=== PATIENT | female | born 1975 | race Two or more races ===

== ENCOUNTER 2022-03-26 22:36 | Emergency (ER) | payer OTHER ==
[2022-03-27] MEDS ORDERED: NEOMYCIN/POLYMYX/DEXAMETH OPHTH DROPS 5 ML EACHEYE STA (01:11)
[2022-03-27] MEDS ORDERED: DEXAMETHASONE 10 MG/ML VIAL PO STA (01:12)
[2022-03-27] MEDS ORDERED: CHERRY SYRUP 10 ML UDC PO ONE (01:12)
[2022-03-27 01:40] VITALS: BP 130/70
[2022-03-27 01:43] LABS: RAPID STREP SCREEN Negative (Negative)
--- NOTE | 2022-03-27 02:11 | ED Physician Documentation ---
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 She indicates that she had an upper respiratory tract infection while on the boat and she was unable to get tested for COVID as the daily line for services was extensive. She felt that she had improvement of the initial illness and developed a cough and then she subsequently developed a second illness. Again this seemed to improve after a period of time and she had a persistent cough. Three days ago she has developed some itching and drainage from both of her eyes and this is reason for her visit this evening. She has yellow drainage from the eyes and swelling. She had sinus pressure that is now improved. Review of Systems Constitutional: reports: Chills, Myalgias, Fatigue, Sweats Eyes: reports: Discharge, Irritation. denies: Decreased vision Ears: denies: Loss of hearing, Ear pain Nose: reports: Rhinorrhea / runny nose, Congestion, Sinus pressure / pain Throat: reports: Sore throat. denies: Dental pain / toothache Cardiac: denies: Chest pain / pressure Respiratory: reports: Cough. denies: Dyspnea GI: denies: Vomiting, Diarrhea : denies: Dysuria, Frequency Skin: denies: Rash Musculoskeletal: denies: Neck pain, Extremity pain Neurologic: denies: Generalized weakness, Focal weakness, Numbness PD PAST MEDICAL HISTORY - Present Medications Home Medications: Ambulatory Orders Medication Instructions Recorded Confirmed Benzonatate [Tessalon] 100 - 200 mg PO TID PRN #30 cap 03/27/22 Neomycin/Poly/Dex Ophth Drops 1 drops EACHEYE QID #5 ml 03/27/22 [Maxitrol Ophth Drops] - Allergies Allergies/Adverse Reactions: Allergies Allergy/AdvReac Type Severity Reaction Status Date / Time No Known Drug Allergies Allergy Verified 03/26/22 22:48 PD ED PE NORMAL - Vitals Vital signs reviewed: Yes (normal ) - General General: Alert and oriented X 3, No acute distress, Well developed/nourished - HEENT HEENT: Atraumatic, PERRL, EOMI, Ears normal, Moist mucous membranes, Pharynx benign, Dentition benign, Other (There is erythema and swelling to the conjuntiva with yellow drainage. There is swelling to the lower conjunctival margin that is not cobblestoning. 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, No motor deficit, No sensory deficit Eye Opening: Spontaneous Motor: Obeys Commands Verbal: Oriented GCS Score: 15 - Psych Psych: Normal mood, Normal affect Results - Vitals Vitals: Vital Signs - 24 hr 03/26/22 03/27/22 03/27/22 22:43 00:11 01:26 Temperature 36.7 C Heart Rate 71 Respiratory 16 16 16 Rate Blood Pressure 129/74 O2 Saturation 99 03/27/22 03/27/22 01:39 03:01 Temperature 36.4 C L Heart Rate 77 Respiratory 16 16 Rate Blood Pressure 130/70 O2 Saturation 100 Oxygen O2 Source Room air - Labs Labs: Laboratory Tests 03/27/22 03/27/22 01:15 01:15 Nasal Adenovirus (PCR) NOT DETECTED Nasal B. parapertussis DNA (PCR) NOT DETECTED Nasal Coronavir 229E PCR NOT DETECTED Nasal Coronavir HKU1 PCR NOT DETECTED Nasal Coronavir NL63 PCR NOT DETECTED Nasal Coronavir OC43 PCR NOT DETECTED Nasal Enterovir/Rhinovir PCR NOT DETECTED Nasal Influenza A H3 PCR DETECTED A Nasal Influenza B PCR NOT DETECTED Nasal Influenza A PCR NOT DETECTED Nasal Parainfluen 1 PCR NOT DETECTED Nasal Parainfluen 2 PCR NOT DETECTED Nasal Parainfluen 3 PCR NOT DETECTED Nasal Parainfluen 4 PCR NOT DETECTED Nasal RSV (PCR) NOT DETECTED Nasal B.pertussis DNA PCR NOT DETECTED Nasal C.pneumoniae (PCR) NOT DETECTED Kayode Human Metapneumo PCR NOT DETECTED Nasal M.pneumoniae (PCR) NOT DETECTED Nasal SARS-CoV-2 (PCR) NOT DETECTED Group A Strep Rapid Negative PD MEDICAL DECISION MAKING - ED course Complexity details: reviewed results, re-evaluated patient, considered differential, d/w patient ED course: 46-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 She has had this happen to her twice within the past month the most recent time that she had URI symptoms starting was March 13. She had had upper respiratory tract infection several weeks before that as well. She felt that she was improving from the second infection when she began to develop irritation to both of her eyes. On exam she has only the findings to the eyes and she is treated in the department with maxitrol drops and has improvement while she is awaiting results of the biofire. The Biofire resulted a influenza A H3 ( a bird flu but not H5) She is likely improving from the flu and the conjunctivitis is a separate issue. Departure - Departure Disposition: 01 Home, Self Care Clinical Impression: Influenza due to hollie influenza A virus subtype [id number] Conjunctivitis Qualifiers: Conjunctivitis type: acute Acute conjunctivitis type: unspecified Laterality: bilateral Qualified Code(s): H10.33 - Unspecified acute conjunctivitis, bilateral Condition: Stable Instructions: ED Conjunctivitis Bacterial, ED Flu Follow-Up: [facility] [Provider Group] Prescriptions: Neomycin/Poly/Dex Ophth Drops [Maxitrol Ophth Drops] 1 drops EACHEYE QID #5 ml Benzonatate [Tessalon] 100 - 200 mg PO TID PRN #30 cap PRN Reason: Cough Comments: Vaishali, today it looks like you have not been exposed to the bird flu and are likely having symptoms related to that. The conjunctive a look like a bacterial process. I have E scribed some eyedrops to the [facility] in [place] as well as some benzoate which is a medicine for cough suppression. Our expectation is resolution of this illness over the next week. Discharge Date/Time: 03/27/22 03:03
[2022-03-27 02:21] LABS: CORONAVIRUS 229E-RESP PCR NOT DETECTED; CORONAVIRUS HKU1-RESP PCR NOT DETECTED; CORONAVIRUS NL63-RESP PCR NOT DETECTED; CORONAVIRUS OC43-RESP PCR NOT DETECTED; HUMAN METAPNEUMOVIRUS NOT DETECTED; INFLUENZA A H3- RESP PCR PANEL DETECTED; INFLUENZA A- RESP PCR PANEL NOT DETECTED; RHINOVIRUS/ENTEROVIRUS NOT DETECTED; SARS-CoV-2 -RESP PCR PANEL NOT DETECTED
[2022-03-27 02:22] LABS: B. PARAPERTUSSIS- RESP PCR PAN NOT DETECTED; B. PERTUSSIS- RESP PCR PANEL NOT DETECTED; C. PNEUMONIAE- RESP PCR PANEL NOT DETECTED; INFLUENZA B - RESP PCR PANEL NOT DETECTED; M. PNEUMONIAE- RESP PCR PANEL NOT DETECTED; PARAINFLUENZA VIRUS 1 NOT DETECTED; PARAINFLUENZA VIRUS 2 NOT DETECTED; PARAINFLUENZA VIRUS 3 NOT DETECTED; PARAINFLUENZA VIRUS 4 NOT DETECTED; RSV- RESP PCR PANEL NOT DETECTED
[2022-03-27] MEDS ORDERED: BENZONATATE 100 MG CAPSULE PO STA (02:50)
== END 2022-03-27 03:03 | disposition home or self-care (01) ==
LOC: ED 22:36
DX: J09.X2 Influenza due to identified novel influenza A virus with other respiratory manifestations (principal); H10.33 Unspecified acute conjunctivitis, bilateral; Z20.822 Contact with and (suspected) exposure to COVID-19
CPT/HCPCS: 87070; 87430; 87633; 99283; 99284; A9270; J3490